=== PATIENT | male | born 1970 | race Caucasian/White ===

== ENCOUNTER 2017-02-18 14:10 | Emergency (ER) | payer SELFPAY ==
--- NOTE | 2017-02-18 15:08 | ED ---
Adult Trauma - HPI Summary HPI Summary: 46M presents with neck pain, shoulder pain and right wrist pain today. 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 He states had neck pain on sides of neck. He states has stiffness to shoulder. He has limited ROM of right wrist. He denies any numbness or tingling. He denies any previous injury to the area. He took ibuprofen prior to coming. He states it has helped. He is right handed. no other injury. - History of Current Complaint Chief Complaint: EDExtremityUpper Stated Complaint: RT WRIST/SHOULDERS,NECK,BACK PAIN Time Seen by Provider: 02/18/17 14:17 Pain Intensity: 7 - Additional Pertinent History Primary Care Physician: AIYANA - Allergy/Home Medications Allergies/Adverse Reactions: Allergies Allergy/AdvReac Type Severity Reaction Status Date / Time No Known Allergies Allergy Verified 05/07/15 06:58 PMH/Surg Hx/FS Hx/Imm Hx Endocrine/Hematology History: Denies: Hx Anticoagulant Therapy Cardiovascular History: Reports: Hx Hypertension - WELL CONTROLLED Respiratory History: Reports: Hx Sleep Apnea Sensory History: Denies: Hx Contacts or Glasses, Hx Hearing Aid Opthamlomology History: Denies: Hx Contacts or Glasses - Surgical History Surgery Procedure, Year, and Place: BILAT [facility] 2013 [place] Hx Anesthesia Reactions: No Infectious Disease History: No Infectious Disease History: Denies: Traveled Outside the [place] in Last 30 Days - Family History Known Family History: Negative: Renal Disease - Social History Alcohol Use: Occasionally Substance Use Type: Reports: None Smoking Status (MU): Never Smoked Tobacco Review of Systems Negative: Fever Negative: Chest Pain Negative: Shortness Of Breath Positive: Myalgia - neck, bilateral shoulder, and right wrist pain All Other Systems Reviewed And Are Negative: Yes Physical Exam Triage Information Reviewed: Yes Vital Signs On Initial Exam: Initial Vitals Temp Pulse Resp BP Pulse Ox 98.1 F 70 18 143/100 99 02/18/17 14:11 02/18/17 14:11 02/18/17 14:11 02/18/17 14:11 02/18/17 14:11 Vital Signs Reviewed: Yes Appearance: Positive: Well-Appearing Skin: Positive: Warm, Dry Head/Face: Positive: Normal Head/Face Inspection Eyes: Positive: Normal, EOMI, LUIS, Conjunctiva Clear ENT: Positive: Normal ENT inspection, Pharynx normal, TMs normal Neck: Positive: Other: - tenderness on side of neck, no midline tenderness, full ROM of neck Respiratory/Lung Sounds: Positive: Clear to Auscultation, Breath Sounds Present Cardiovascular: Positive: Normal, RRR Musculoskeletal: Positive: Strength/ROM Intact - shoulder and wrist, Other - good pulses, capillary refill<2 secs, neg hakwins, able to push off behind, good semiconductor processing technician strenght hand, sensation grossly intact Neurological: Positive: Normal Psychiatric: Positive: Normal - Jonnathan Coma Scale Coma Scale Total: 15 Diagnostics - Vital Signs Vital Signs Temp Pulse Resp BP Pulse Ox 02/18/17 14:11 98.1 F 70 18 143/100 99 - Laboratory Lab Statement: Any lab studies that have been ordered have been reviewed, and results considered in the medical decision making process. - Radiology neck Xray Interpretation: No Acute Changes - IMPRESSION: MILD TO MODERATE OSTEOARTHRITIC CHANGE. NO ACUTE FINDINGS. Radiology Interpretation Completed By: Radiologist wrist Xray Interpretation: No Acute Changes - IMPRESSION: NO EVIDENCE FOR FRACTURE, IF THE PATIENT'S SYMPTOMS PERSIST RECOMMEND FOLLOW-UP IMAGING. Radiology Interpretation Completed By: Radiologist Adult Trauma Course/Dx - Course Course Of Treatment: 46M presents with neck pain, shoulder pain and right wrist pain today. 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 He states had neck pain on sides of neck. He states has stiffness to shoulder. He has limited ROM of right wrist. He denies any numbness or tingling. He denies any previous injury to the area. He took ibuprofen prior to coming. He states it has helped. He is right handed. no other injury. on exam has full ROM of shoulder, tenderness over neck, some edema to right wrist. good semiconductor processing technician strength. neg peña. xray neck and wrist normal. will treat with RICE. patient understand and agrees with plan. - Diagnoses Differential Diagnosis/HQI/PQRI: Positive: Contusion(s), Fracture, Sprain, Strain Provider Diagnoses: Neck pain, Right wrist injury, Shoulder pain Discharge - Discharge Plan Condition: Good Disposition: HOME Patient Education Materials: Neck Pain (ED) Referrals: Session Yuniel RICARDO [Primary Care Provider] - Danielito Crum MD [Medical Doctor] - Additional Instructions: Take Tylenol or ibuprofen every 6 hours as needed for pain Apply ice, rest, elevate Follow up with primary care physician within 5 days Return to ED if develop any new or worsening symptoms
--- NOTE | 2017-02-18 15:20 | RAD ---
INDICATION: Neck pain COMPARISON: None TECHNIQUE: Routine five-view imaging was performed FINDINGS: Bones: There are no acute bony findings. There are arthritic changes consisting of mild multilevel degenerative spurring at C5 C3 C5, C6, and C7. There is endplate sclerosis at multiple mid to lower cervical levels. Craniocervical junction: The odontoid and atlantodental interval are normal. Alignment: Normal Disc spaces: Minor disc space narrowing C6-C7. The remaining disc spaces are well-maintained. Soft tissues: The prevertebral soft tissues are normal. IMPRESSION: MILD TO MODERATE OSTEOARTHRITIC CHANGE. NO ACUTE FINDINGS.
--- NOTE | 2017-02-18 15:21 | RAD ---
INDICATION: Right wrist injury. TECHNIQUE: 3 views of the right wrist were obtained. FINDINGS: The bones are in normal alignment. No fracture is seen. Joint spaces appear maintained. IMPRESSION: NO EVIDENCE FOR FRACTURE, IF THE PATIENT'S SYMPTOMS PERSIST RECOMMEND FOLLOW-UP IMAGING.
[2017-02-18 15:44] VITALS: BP 139/96
== END 2017-02-18 15:42 | disposition home or self-care (01) ==
LOC: ED 14:10
DX: S69.91XA Unspecified injury of right wrist, hand and finger(s), initial encounter (principal); M25.511 Pain in right shoulder; M54.2 Cervicalgia; X50.9XXA Other and unspecified overexertion or strenuous movements or postures, initial encounter; Y93.9 Activity, unspecified; Y92.9 Unspecified place or not applicable; Y99.9 Unspecified external cause status; Z86.79 Personal history of other diseases of the circulatory system
CPT/HCPCS: 72050; 99282

== ENCOUNTER 2018-07-06 15:25 | Emergency (ER) | payer OTHER ==
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
[2018-07-06 15:52] VITALS: BP 00/0
== END 2018-07-06 15:51 | disposition home or self-care (01) ==
LOC: ED 15:25
DX: S40.811A Abrasion of right upper arm, initial encounter (principal); Y04.2XXA Assault by strike against or bumped into by another person, initial encounter; Y93.9 Activity, unspecified; Y92.9 Unspecified place or not applicable; M79.621 Pain in right upper arm
CPT/HCPCS: 99281